=== PATIENT | female | born 1940 | race Caucasian/White ===

== ENCOUNTER 2022-10-25 17:32 | Outpatient (REF) | payer MEDICARE, OTHER, SELFPAY ==
[2022-10-25 14:39] LABS: ALT 13 U/L (14-59); AST 15 U/L (15-37); Albumin 3.8 g/dL (3.4-5.0); Alkaline Phosphatase 76 U/L (46-116); Anion Gap 5.9 mmol/L (3-11); BUN 20 mg/dL (7-18); Bilirubin, Total 0.7 mg/dL (0.2-1.0); CO2 32.1 mmol/L (21.0-32.0); CREATININE 0.9 mg/dL (0.55-1.02); Calcium 9.3 mg/dL (8.5-10.1); Calculated LDL 148 mg/dL (<100); Chloride 105 mmol/L (98-107); Cholesterol 241 mg/dL (<200); Estimated GFR 64.23 (mL/min/1.73m2); Glucose 91 mg/dL (74-106); HDL Cholesterol 77 mg/dL (40-60); Potassium 4.3 mmol/L (3.5-5.1); Sodium 143 mmol/L (136-145); Total Protein 7.5 g/dL (6.4-8.2); Triglyceride 84 mg/dL (<150)
== END 2022-10-25 17:33 | disposition home or self-care (01) ==
LOC: NCHCN 17:32
PROVIDERS: Visit Provider Family Medicine
DX: I10 Essential (primary) hypertension (principal)
CPT/HCPCS: 80053; 80061

== ENCOUNTER 2023-05-02 10:04 | Outpatient (REF) | payer MEDICARE, OTHER, SELFPAY ==
[2023-05-02 15:10] LABS: Anion Gap 8.3 mmol/L (3-11); BUN 22 mg/dL (7-18); CO2 28.7 mmol/L (21.0-32.0); Calcium 9.7 mg/dL (8.5-10.1); Chloride 104 mmol/L (98-107); Estimated GFR 56.25 (mL/min/1.73m2); Glucose 87 mg/dL (74-106); Potassium 4.3 mmol/L (3.5-5.1); Sodium 141 mmol/L (136-145)
== END 2023-05-02 10:05 | disposition home or self-care (01) ==
LOC: NCHCN 10:04
PROVIDERS: Visit Provider Family Medicine
DX: I10 Essential (primary) hypertension (principal)
CPT/HCPCS: 80048

== ENCOUNTER → 2023-08-01 00:30 | Outpatient (CLI) | payer MEDICARE, OTHER, SELFPAY ==
--- NOTE | 2023-08-01 | DI.US_ITS ---
APPROVED REPORT EXAM: Comprehensive 2D, Doppler, and color-flow Echocardiogram Patient Location: Out-Patient Turner Machine: Chandrika Dobson RDCS (AE) Indications: Murmur Other Information Study Quality: Adequate Conclusion Borderline concentric left ventricular hypertrophy. Ejection fraction is 50 to 55%. Septal motion s uggests an interventricular conduction delay Normal right ventricular size and function Both atria are normal in size Aortic valve is trileaflet and sclerotic with mild regurgitation Mild mitral regurgitation Right ventricular systolic pressure could not be estimated Ascending aorta measures 3.47 cm Wall motion Left Ventricle The left ventricle is normal size. Left ventricular systolic function is normal Borderline concentric left ventricular hypertrophy. Septal motion suggests IVCD There is no ventricular septal defect visu alized. LVEF is 50-55%. Right Ventricle The right ventricle is normal size. The right ventricular systolic function is normal. Atria The left atrium size is normal. The right atrium size is normal. The interatrial septum is intact wit h no evidence for an atrial septal defect. Aortic Valve The Aortic valve is sclerotic. Aortic valve is trileaflet. There is no aortic valvular stenosis. Mild aortic regurgitation. Mitral Valve The mitral valve is normal in structure. No evidence of mitral valve stenosis. Mild mitral regurgit ation. Tricuspid Valve The tricuspid valve is normal in structure. There is no tricuspid valve stenosis. Trace to mild tri cuspid regurgitation. Unable to assess PA pressure. Pulmonic Valve The pulmonary valve is normal in structure. There is no pulmonic valvular stenosis. Trace pulmonic re gurgitation. Great Vessels The aortic root is normal in size. The ascending aorta is mildly dilated. Aortic arch is normal in ca liber. IVC is normal in size and collapses >50% with inspiration. Pericardium There is no pericardial effusion. 2D Dimensions IVSD d PLAX 1.11 cm F: 0.6-1.0 Ao Root d 2.42 cm F: 2.7 - 3.3 LVPW d PLAX 1.10 cm F: 0.6 - 1.0 Ao Asc Diam d 3.47 cm F: 2.3 - 3.1 LVID d PLAX 4.54 cm F: 3.8 - 5.2 LVDs 3.65 cm F: 2.2 - 3.5 LV EF Teichholz 40.4 % FS 19.63 % LV EDV (Teich) 94.4 mL LV ESV (Teich) 56.2 mL M-Mode TAPSE 1.88 cm (M/F) >1.7 Auto EF LV EDV A4C 90.8 mL LV EDV A2C 118.7 mL LV EDV BP 105.4 mL LV ESV A4C 55.5 mL LV ESV A2C 67.3 mL LV ESV BP 61.8 mL LVEF(%) A4C 38.9 % LVEF(%) A2C 43.3 % LVEF(%) BP 41.4 % LV SV A4C 35.3 ml LV SV A2C 51.4 ml LV SV BP 43.7 ml LV CO A4C 2.1 L/min LV CO A2C 3.3 L/min LV CO BP 2.7 L/min HR A4C 60.51 BPM HR A2C 64.06 BPM LV EDV Index (BP) LV Strain Long Pk Overal Avg (s) 12.12 LA Volume LA Length A4C 5.0 cm LA Length A2C 4.9 cm LA Area A4C s 13.45 cm2 LA Area A2C s 17.37 cm2 LA Vol A4C A-L 30.50 mL LA Vol A2C A-L 52.70 mL LA Vol Biplane A-L 40.8 mL LA Vol/BSA A4C A-L LA Vol/BSA A2C A-L LA Vol/BSA BP A-L 23.2 mL/m2 LA Vol A4C MOD 28.3 mL LA Vol A2C MOD 50.2 mL LA Vol BP MOD 38.2 mL RA Volume RA Area A4C 10.0 cm2 RA ESV A4C (A-L) 19.6mL RA Vol/BSA A4C A-L RA Length A4C 4.3 cm RA ESV A4C (MOD) 18.8mL LV Diastology MV E' medial 0.035 (>0.07 m/s) MV E Vmax 0.75 (0.4-1.3 m/s) MV E/E' MED 21.13 (<14) MV A Vmax 1.10 (0.4-1.3 m/s) MV E' lateral 0.114 (>0.1 m/s) E/A Ratio 0.7 MV E/E' LAT 6.55 (<14) MV E' Average 0.075 m/s MV E/E'(average) 10.00 Aortic Valve AoV Vmax 1.79 m/s LVOT Vmax 1.03 m/s AoV Peak Grad 34.8 mmHg LVOT Peak Grad 4.2 mmHg AoV Area (Vmax) 1.48 cm2 LVOT VTI 0.233 m AoV VTI 0.383 m LVOT Mean Grad 2.4 mmHg AoV Mean Earl. 1.27 m/s LVOT SV 59.78 mL AoV Mean Grad 7.3 mmHg LVOT Diam s 1.80 cm AoV Area (VTI) 1.56 cm2 AV Regurg Peak Gr. 56.70 mmHg Velocity Ratio 0.58 AR Decel [place] 1.1m/sec2 AR DT 3292 msec AR PHT 955 msec AR Vmax 3.77 m/s Mitral Valve MV DT 288 (160-240 msec) MV Vmax TIPS 1.35 m/s MV Mean Grad 2.3 (<2mmHg) MV VTI 0.321 m Pulmonary Valve PV Vmax 0.97 (0.5-1.5 m/s) RVOT Vmax 0.81 m/s PV Peak Grad 3.7 mmHg RVOT Peak Gr. 2.6 mmHg PV Mean Earl 0.67 m/s RVOT VTI 0.181 m PV Mean Grad 2.1 mmHg RVOT Mean Gr. 1.4 mmHg Tricuspid Valve RA Pressure 3.00 mmHg TV S' 0.11 m/s
== END ==
PROVIDERS: Visit Provider Family Medicine
DX: R01.1 Cardiac murmur, unspecified (principal); I34.0 Nonrheumatic mitral (valve) insufficiency; I35.1 Nonrheumatic aortic (valve) insufficiency; I45.9 Conduction disorder, unspecified
CPT/HCPCS: 93306

== ENCOUNTER 2023-10-21 10:18 | Emergency (ER) | payer MEDICARE, OTHER, SELFPAY ==
[2023-10-21 10:21] VITALS: BP 154/85; PULSE 97; RESP 10; TEMP 36.8; O2SAT 97
--- NOTE | 2023-10-21 10:41 | ED.GENADUL_ITS ---
Discharge Plan Disposition Patient Disposition: Home Condition: Stable Discharge Details Clinical Impression: Cellulitis of arm, left Primary Care Provider: Cindy Royal ED Provider: Wero Ramos Home Meds and New Rx's Prescriptions: New prednisone 20 mg tablet 60 mg PO DAILY 4 Days Qty: 12 0RF amoxicillin-pot clavulanate 875-125 mg tablet 1 tab PO BID Qty: 14 0RF Continued amlodipine 2.5 mg tablet 5 mg PO DAILY Patient Comments: TAKE ONE TABLET BY MOUTH EVERY DAY losartan 25 mg tablet 25 mg PO DAILY Patient Comments: TAKE ONE TABLET BY MOUTH AT BEDTIME Discharge Instructions Additional Instructions: Take the medications as prescribed. If not better within a week follow-up with your primary care provider If you feel more ill, have spreading redness or high fevers return to the emergency department for reevaluation. HPI General Mode of arrival: ambulatory . Date/Time Provider Initiated Documentation: 10/21/23 10:29 . Limitations to Documentation: no limitations . Information obtained by: patient . History of Present Illness 83 year old F presents to the emergency department with the chief complaint of left wrist redness, described as moderate, Patient started experiencing this day(s) (3) and it has been constant. No relieving factors improve symptom(s), No exacerbating factors reported . Patient notes rash; denies fever/chills. Patient did receive the following treatments prior to arrival, none Related Data Home Medications ?Medication ?Instructions ?Recorded ?Confirmed amlodipine 2.5 mg tablet 5 mg PO DAILY 10/21/23 10/21/23 amoxicillin 875 mg-potassium 1 tab PO BID #14 tabs 10/21/23 clavulanate 125 mg tablet losartan 25 mg tablet 25 mg PO DAILY 10/21/23 10/21/23 prednisone 20 mg tablet 60 mg (3 x 20 mg) PO DAILY 4 days 10/21/23 #12 tabs Previous Rx's ?Medication ?Instructions ?Recorded amoxicillin 875 mg-potassium 1 tab PO BID #14 tabs 10/21/23 clavulanate 125 mg tablet prednisone 20 mg tablet 60 mg (3 x 20 mg) PO DAILY 4 days 10/21/23 #12 tabs Allergies Allergy/AdvReac Type Severity Reaction Status Date / Time No Known Allergies Allergy Unverified 10/21/23 10:25 General Stated Complaint: Cellulitis INNA: 3 Review of Systems All systems reviewed & are unremarkable except as noted in HPI and below Constitutional Constitutional: Denies chills, Denies fever(s) and Denies weakness Cardiovascular Cardiovascular: Denies chest pain and Denies dyspnea Respiratory Respiratory: Denies cough and Denies dyspnea Gastrointestinal Gastrointestinal: Denies abdominal pain, Denies nausea and Denies vomiting Integumentary/Breasts Skin/Breast: Reports rash Neurologic Neurologic: Denies weakness Exam Const General: no acute distress Orientation: alert HENTX Head: normal to inspection Ears: external ears normal General nose exam: external nose normal Mouth: moist mucous membranes Eyes General: appearance normal, both eyes and all related structures Neck Neck: normal visual inspection Resp Effort & Inspection: normal respiratory effort and able to speak in complete sentences Cardio Rate: regular rate Skin General skin exam: erythema Neuro General: patient alert and patient oriented x3 Psych Mental Status: mental status grossly normal Course Vital Signs Vital signs: Vital Signs Temperature 36.8 C 10/21/23 10:21 Pulse 97 H 10/21/23 10:21 Respiratory Rate 10 L 10/21/23 10:21 Blood Pressure 154/85 H 10/21/23 10:21 Pulse Oximetry 97 10/21/23 10:21 Temperature 36.8 C 10/21/23 10:21 Temperature Source Skin 10/21/23 10:21 Pulse 97 H 10/21/23 10:21 Respiratory Rate 10 L 10/21/23 10:21 Blood Pressure 154/85 H 10/21/23 10:21 Blood Pressure Position Sitting 10/21/23 10:21 Pulse Oximetry 97 10/21/23 10:21 Oxygen Delivery Method Room Air 10/21/23 10:21 Oxygen Flow Rate 0 10/21/23 10:21 Pain Level 9 10/21/23 10:21 Medical Decision Making 83-year-old female with a history of high blood pressure comes in with several days of left forearm and wrist redness and swelling. Denies any fevers or chills. She otherwise feels well. She denies any falls or trauma. She is alert and attentive on arrival and appears well speaking clearly. Her right distal forearm on the anterior surface is 5 x 6 cm of erythema extends over the wrist. She has full range of motion of the wrist with intact sensation and pulses. The wrist itself is not diffusely swollen. There is no crepitus or fluctuance. I suspect cellulitis versus inflammatory arthritis or tendinitis. I did recommend x-rays and labs and potentially an arthrocentesis to evaluate for septic joint but patient declines this and wants to try oral antibiotics and see if that improves. She understands the risks of worsening infection including potentially loss of limb and life and is willing accept these risks. She has full medical decision-making capacity, given the risk is not diffusely swollen and not having fevers I feel is reasonable to trial oral antibiotics. Will start her on Augmentin and also prednisone, will have her follow-up with her PCP and return precautions given. Differential Diagnosis Differential Diagnosis: Cellulitis, inflammatory arthritis, septic arthritis Quality:SDOH Health Related Social Needs: No Data to Display PFSH All Active Problems (Updated 10/21/23 @ 10:46 by Wero Ramos MD) Cellulitis of arm, left (Acute) Social History Smoking risk assessment performed?: No
[2023-10-21] MEDS: Amoxicillin 875/Clav. 125 TAB PO (10:47)
[2023-10-21] MEDS: predniSONE 20 MG TAB 60 MG PO (11:02)
[2023-10-21 11:03] VITALS: BP 154/85; PULSE 90; RESP 14; RESP 16; TEMP 36.8; O2SAT 97
== END 2023-10-21 11:03 | disposition home or self-care (01) ==
LOC: ER 10:51
PROVIDERS: Emergency Provider Emergency Medicine; PCP Family Medicine
DX: L03.114 Cellulitis of left upper limb (principal)
CPT/HCPCS: 99283; J7512

== ENCOUNTER 2024-07-30 09:57 | Outpatient (REF) | payer MEDICARE, OTHER, SELFPAY ==
[2024-07-30 15:05] LABS: Anion Gap 8.1 mmol/L (3-11); BUN 21 mg/dL (7-18); CO2 30.9 mmol/L (21.0-32.0); CREATININE 0.9 mg/dL (0.55-1.02); Calcium 9.5 mg/dL (8.5-10.1); Chloride 105 mmol/L (98-107); Estimated GFR 63.43 (mL/min/1.73m2); Glucose 87 mg/dL (74-106); Potassium 4.5 mmol/L (3.5-5.1); Sodium 144 mmol/L (136-145)
== END 2024-07-30 09:58 | disposition home or self-care (01) ==
LOC: NCHCN 09:57
PROVIDERS: PCP Family Medicine; Visit Provider Family Medicine
DX: I10 Essential (primary) hypertension (principal)
CPT/HCPCS: 80048

== ENCOUNTER 2024-11-24 10:32 | Outpatient (CLI) | payer MEDICARE, OTHER, SELFPAY ==
--- NOTE | 2024-11-24 10:09 | DI.RAD_ITS ---
Exam(s) XR KNEE LT 3V AP,LAT,KANDICE EXAM: XR KNEE LT 3V AP,LAT,KANDICE CLINICAL HISTORY: PAIN LEFT KNEE M25.562 CHRONIC PAIN G89.29 BILAT KNEE PAIN. TECHNIQUE: 2D digital imaging was performed. Three views. COMPARISON: CR XR KNEE RT 3V AP,LAT,KANDICE from 11/24/2024 FINDINGS: BONES: No acute fracture is present. No bony destructive lesion is seen. JOINTS: Severe narrowing of the medial femoral tibial joint space with periarticular spurring. This causes varus angulation. There is mild spurring at the articular aspect of the patella. There also degenerative changes the proximal tibial fibular joint. No joint effusion is seen. SOFT TISSUE: Normal. IMPRESSION: Severe degenerative changes of the medial femoral tibial joint. DATA REPOSITORY: RADIATION DOSE DELIVERED:
--- NOTE | 2024-11-24 10:09 | DI.RAD_ITS ---
Exam(s) XR KNEE RT 3V AP,LAT,KANDICE EXAM: XR KNEE RT 3V AP,LAT,KANDICE CLINICAL HISTORY: PAIN RT KNEE M25.561 CHRONIC PAIN G89.29 BILAT KNEE PAIN. TECHNIQUE: 2D digital imaging was performed. Three views. COMPARISON: No exams were available for comparison FINDINGS: BONES: No acute fracture is present. No bony destructive lesion is seen. Other spurring at the superior pole of the patella. JOINTS: There is moderate narrowing of medial femoral tibial joint space which shows moderate periarticular spurring. This causes mild varus angulation. The lateral femoral tibial joint space is maintained. No joint effusion is seen. SOFT TISSUE: Normal. IMPRESSION: Moderate degenerative changes of the medial femoral tibial joint.. DATA REPOSITORY: RADIATION DOSE DELIVERED:
== END 2024-11-24 10:52 ==
LOC: DI 10:32
PROVIDERS: PCP Family Medicine; Visit Provider Family Medicine
DX: M17.0 Bilateral primary osteoarthritis of knee (principal)
CPT/HCPCS: 73562

== ENCOUNTER 2024-12-27 07:42 | Inpatient (IN) | payer MEDICARE, OTHER, SELFPAY ==
[2024-12-27] VITALS (38 sets, daily range): BP systolic 125–188; BP diastolic 68–93; PULSE 63–129; RESP 16–26; TEMP 36.7–37.5; O2SAT 92–97
--- NOTE | 2024-12-27 07:45 | RT.EKG_ITS ---
APPROVED REPORT Exam: Resting ECG Reason for Exam: chest pain Patient Location: E HR:104 bpm ECG Measurements Heart Rate 104 AXIS MN 152 P 55 QRSd 129 QRS -19 QT 346 T 139 QTc 457 Conclusion Sinus tachycardia...rate> 99 Multiple ventricular premature complexes...V complexes w/ short R-R intervls Probable left atrial enlargement...P >50mS, <-0.10mV V1 Left bundle branch block...QRSd>120, broad/notched R ST elevation secondary to IVCD...Multiple VCG criteria
--- NOTE | 2024-12-27 07:50 | W.ED.GENAD ---
Discharge Plan Disposition Patient Disposition: Admit to [facility] Condition: Stable Discharge Details Clinical Impression: Pulmonary embolism, Shortness of breath Primary Care Provider: Cindy Royal ED Provider: Wero Ramos Home Meds and New Rx's Prescriptions: No Action amlodipine 2.5 mg tablet 5 mg PO DAILY Patient Comments: TAKE ONE TABLET BY MOUTH EVERY DAY losartan 25 mg tablet 25 mg PO DAILY Patient Comments: TAKE ONE TABLET BY MOUTH AT BEDTIME HPI General Date/Time Provider Initiated Documentation: 12/27/24 07:46. Limitations to Documentation: no limitations. Information obtained by: patient. History of Present Illness 84 year old F presents to the emergency department with the chief complaint of cough, chest pain, described as moderate, Quality is described as aching and sharp, and is localized to the chest and back. Patient started experiencing this day(s) (2) and it has been constant. No relieving factors improve symptom(s), Other factors that worsen symptoms (deep breaths) . Patient notes no other symptoms.. Patient did receive the following treatments prior to arrival, none Related Data Home Medications ?Medication ?Instructions ?Recorded ?Confirmed amlodipine 2.5 mg tablet 5 mg PO DAILY 10/21/23 12/27/24 losartan 25 mg tablet 25 mg PO DAILY 10/21/23 12/27/24 Allergies Allergy/AdvReac Type Severity Reaction Status Date / Time No Known Allergies Allergy Unverified 12/27/24 07:49 General Stated Complaint: RespSymp INNA: 3 Review of Systems All systems reviewed & are unremarkable except as noted in HPI and below Constitutional Constitutional: Denies chills, Denies fever(s) and Denies weakness Cardiovascular Cardiovascular: Reports chest pain and Reports dyspnea Respiratory Respiratory: Reports cough and Reports dyspnea Gastrointestinal Gastrointestinal: Denies abdominal pain, Denies nausea and Denies vomiting Neurologic Neurologic: Denies weakness Exam Const General: no acute distress Orientation: alert HENDC Head: normal to inspection Ears: external ears normal General nose exam: external nose normal Mouth: moist mucous membranes Eyes General: appearance normal, both eyes and all related structures Neck Neck: normal visual inspection Resp Effort & Inspection: normal respiratory effort and able to speak in complete sentences Auscultation: rhonchi Cardio Jugular venous pressure: no JVD Rate: regular rate GI Palpation: soft and nontender Back/Spine/Pelvis Back: no CVA tenderness Skin General skin exam: no rashes or lesions noted Neuro General: patient alert and patient oriented x3 Extrem General: normal to inspection Psych Mental Status: mental status grossly normal Course Vital Signs Vital signs: Vital Signs Temperature 37.5 C 12/27/24 07:47 Pulse 114 H 12/27/24 07:47 Respiratory Rate 22 12/27/24 07:47 Blood Pressure 188/88 H 12/27/24 07:47 Pulse Oximetry 97 12/27/24 07:47 Temperature 37.5 C 12/27/24 07:47 Temperature Source Oral 12/27/24 07:47 Pulse 114 H 12/27/24 07:47 Respiratory Rate 22 12/27/24 07:47 Blood Pressure 188/88 H 12/27/24 07:47 Blood Pressure Position Sitting 12/27/24 07:47 Pulse Oximetry 97 12/27/24 07:47 Oxygen Delivery Method Room Air 12/27/24 07:47 Oxygen Flow Rate 0 12/27/24 07:47 Pain Level 0 12/27/24 07:47 Medical Decision Making 84-year-old female with a history of hypertension comes in with 2 days of cough that is intermittently productive and also pleuritic right-sided chest pain. Denies any high fevers. She is well-appearing speaking full sentences with intermittent cough during exam. She has clear lung sounds on the left but on the right does have apical wheezing and rhonchi at the base. No JVD or leg swelling. I suspect respiratory infection but given the pleuritic nature of her pain and a heart rate of 114 I will proceed with checking a CBC CMP troponins and a CTA of the chest to evaluate for possible PE. Will treat her symptoms with methylprednisolone and a DuoNeb and reassess Labs show white count of 18 and mild elevation of troponin to 62. She does feel better after DuoNeb. CTA on my read shows an infiltrate awaiting virtual radiology read. Will order ceftriaxone and azithromycin while awaiting CTA shows right sided PE. Her Pesi score is 103 which is intermediate risk, will order Eliquis and discussed with hospitalist about admission Differential Diagnosis Differential Diagnosis: Pneumonia, PE, URI Medical Records Medical records reviewed: Yes I reviewed the patient's medical records. Lab Data Lab results reviewed: Yes I reviewed the patient's lab results. ECG Data Attestation: I personally reviewed and interpreted this ECG (s) as follows: Prior ECG tracings: not available for review Interpretation: sinus tachycardia rate of 104 pr 152 no stemi lbbb PFSH All Active Problems (Updated 12/27/24 @ 10:58 by Wero Ramos MD) Shortness of breath (Acute) Pulmonary embolism (Chronic) Social History Smoking/Tobacco Use Status: Unknown Smoking risk assessment performed?: Yes Drug use: Never Substance use type: does not use Housing: house Do you feel safe at home: Yes Do you feel safe in your relationship?: Yes
--- NOTE | 2024-12-27 08:01 | DI.CT_ITS ---
Exam(s) CT CHEST PE CTA EXAM: CT CHEST PE CTA CLINICAL HISTORY: right sided pleuritic chest pain. TECHNIQUE: Imaging Protocol: CT angiography of the chest was performed using pulmonary embolus protocol. Multi planar reconstructions were performed. CONTRAST MATERIAL: Intravenous: Omnipaque 350 Contrast volume: 100 cc COMPARISON: No exams were available for comparison FINDINGS: CHEST: PULMONARY ARTERIES: There are abnormal intraluminal filling defects with in the pulmonary arteries in the right lower lobe posterior basal segment consistent with acute pulmonary emboli. No emboli seen in the right upper and right middle lobes. There intraluminal filling defect evident in left upper lobe pulmonary arteries. No filling defects in left lower lobe pulmonary arteries.There is infiltrate in the right lung base posterior basal segment and lateral basal segment. And a small right pleural effusion. LUNGS: As above. No findings in trachea and mainstem bronchi. Healed left- sided rib fractures. MEDIASTINUM: There is no hilar nor mediastinal adenopathy. CARDIAC: Mild cardiomegaly. No pericardial effusion. Ventricular ratio is 1/1.Caliber of the thoracic aorta is within normal limits. No evidence of dissection. PARTIALLY VISUALIZED UPPERMOST ABDOMEN: No obvious findings OSSEOUS: Healed left rib fractures. No acute fractures. No osseous lesions.. IMPRESSION: 1. This study is positive for the presence of acute pulmonary emboli in right lower lobe vessels. There is also some infiltrate in the right lower lobe posterior basal and lateral basal segments. Suspect pulmonary infarction, infectious infiltrate, or a combination of both.There is also small unilateral right pleural effusion. 2. There is also a subtle suggestion of pulmonary embolus in the left upper lobe. No evidence of infiltrate nor infarction in the left upper lobe and there is no left pleural effusion. 3. Ventricular ratio is 1:1. There is no reflux of IV contrast into the intrahepatic IVC. Preliminary virtual Radiology report was reviewed. RADIATION DOSE DELIVERED: 81.89mGy.cm Total DLP DATA REPOSITORY: All CT scans at this facility are submitted to the National Radiology Data Registry (NRDR) Dose Index Registry (DIR) with the [employer] (ACR). RADIATION OPTIMIZATION: All CT scans at this facility use at least one of these dose optimization techniques: automated exposure control; mA and/or kV adjustment per patient size (includes targeted exams where dose is matched to clinical indication); or iterative reconstruction.
[2024-12-27 08:33] LABS: Abs Immature Grans 0.07 10^3/uL (0.0-0.06); HCT 37.1 % (36.0-46.0); HGB 12.1 g/dL (11.2-15.7); Immature Grans % 0.4 %; MCH 28.1 pg (27.0-33.0); MCHC 32.6 % (32.0-36.0); MCV 86 fL (80-95); MPV 10.5 fL (8.0-11.0); Platelet Count 214 10^3/uL (130-400); RBC 4.31 10^6/uL (3.93-5.22); RDW 13.7 % (11.7-14.6); RDW-SD 43.0 fL; WBC 18.49 10^3/uL (4.4-10.8)
[2024-12-27] MEDS: methylPREDNISolone SUCC 125 MG VIAL IVP (08:47)
[2024-12-27] MEDS: Normal Saline 250 ML 500 ML IV (08:47)
[2024-12-27] MEDS: Normal Saline Flush 10 ML SYR IVP ×3 (08:47→20:01)
[2024-12-27 08:48] LABS: INR 1.0 (0.9-1.1); PTT Activated 22.3 sec (20.6-30.2); Prothrombin Time 10.3 sec (9.1-11.1)
[2024-12-27 08:55] LABS: ALT 20 U/L (14-59); AST 13 U/L (15-37); Albumin 3.4 g/dL (3.4-5.0); Alkaline Phosphatase 67 U/L (46-116); Anion Gap 7.8 mmol/L (3-11); BUN 18 mg/dL (7-18); Bilirubin, Total 1.0 mg/dL (0.2-1.0); CO2 29.2 mmol/L (21.0-32.0); Calcium 9.0 mg/dL (8.5-10.1); Chloride 101 mmol/L (98-107); Estimated GFR 55.90 (mL/min/1.73m2); Glucose 141 mg/dL (74-106); Magnesium 2.0 mg/dL (1.8-2.4); Potassium 4.0 mmol/L (3.5-5.1); Sodium 138 mmol/L (136-145); Total Protein 7.6 g/dL (6.4-8.2)
[2024-12-27 08:55] LABS: COVID-19 PCR Negative (Negative); RSV PCR Negative (Negative)
[2024-12-27 08:58] LABS: Troponin I 62 ng/L (<or=51)
[2024-12-27] MEDS: Normal Saline - Diluent 50 ML VIAL IJ (09:14)
[2024-12-27] MEDS: Omnipaque 350 MG/ML 100 ML BTL IJ (09:14)
[2024-12-27 10:07] LABS: Troponin I 57 ng/L (<or=51)
--- NOTE | 2024-12-27 10:32 | DI.VRAD_ITS ---
Addendum created by Kamran Valencia MD on 12/27/2024 10:33:53 AM EDT: THIS REPORT CONTAINS FINDINGS THAT MAY BE CRITICAL TO PATIENT CARE. The findings were verbally communicated via telephone conference with Wero Ramos at 10:33 AM EDT on 12/27/2024. The findings were acknowledged and understood. Initial report created on 12/27/2024 10:32:08 AM EDT: PROCEDURE INFORMATION: Exam: CTA Chest With Contrast Exam date and time: 12/27/2024 9:18 AM Age: 84 years old Clinical indication: Other: Right sided pleuritic chest pain TECHNIQUE: Imaging protocol: Computed tomographic angiography of the chest with contrast. Exam focused on the arteries. 3D rendering (Not supervised by radiologist): MIP and/or 3D reconstructed images were created by the technologist. Contrast material: OMNIPAQUE 350; Contrast volume: 70 ml; Contrast route: INTRAVENOUS (IV); COMPARISON: No relevant prior studies available. FINDINGS: Pulmonary arteries: Right lower lobe segmental and subsegmental pulmonary emboli. There are no central or main pulmonary artery emboli. Aorta: Unremarkable. No aortic aneurysm. No aortic dissection. Lungs: Right upper lobe ground-glass opacity measures 7 mm. Adjacent 5 mm ground-glass opacity. Right lower lobe atelectasis. Low lung volumes. Pleural spaces: Small right pleural effusion. Heart: Cardiomegaly. The cardiac ratio is 1.0. Lymph nodes: Unremarkable. No enlarged lymph nodes. Bones/joints: Unremarkable. No acute fracture. Soft tissues: Unremarkable. IMPRESSION: 1. Right lower lobe segmental and subsegmental pulmonary emboli. 2. Borderline elevated heart ratio. 3. Right lower lobe atelectasis with small right pleural effusion. Dictated and Authenticated by: Kamran Valencia MD. Orderin Richard Conteh MD
[2024-12-27] MEDS: cefTRIAXone 2 GM/50 ML BAG IVPB (10:39)
[2024-12-27] MEDS: AZITHROMYCIN 500 MG in Normal Saline 250 ML 250 MG IVPB (11:17)
[2024-12-27] MEDS: Apixaban 5 MG TAB 10 MG PO ×2 (11:18→20:00)
--- NOTE | 2024-12-27 11:52 | HPE_ITS ---
Date of service: 12/27/24 Time of Service: 11:52 Assessment and Plan Assessment and plan (1) Shortness of breath: Status: Acute Assessment and plan: RT evjuan ramon Nebs IS Acapella O2 PRN (2) Pulmonary embolism: Status: Chronic Assessment and plan: Apixaban started in ED; continue 10 mg BID Acute, confirmed by imaging. Monitor for signs of bleeding and hemodynamic instability. Supplemental O2 to maintain SpO2 > 92%. Telemetry monitoring. Consider echocardiogram if concern for right heart strain. Follow-up with hematology or PCP for long-term anticoagulation plan. (3) Community acquired pneumonia: Status: Acute Assessment and plan: New onset acute shortness of breath WBC 18 Continue empiric IV antibiotics - ceftriaxone and azithromycin (tailor per culture/sensitivity results). Supplemental O2 as needed. Incentive spirometry, pulmonary hygiene. Monitor WBC count, temperature curve, and clinical status. BC pending Repeat chest imaging if worsening or poor clinical response. History of Present Illness History of Present Illness Chief Complaint: Cough; chest pain Narrative: An 84-year-old female with a history of hypertension presents to the emergency department with a 2-day history of cough and moderate, sharp, pleuritic right- sided chest pain, which is constant and worsens with deep breaths. She denies chills, fever, or weakness, and has not experienced any other symptoms such as nausea or vomiting. Initial labs indicate a white blood cell count of 18 and a mild troponin elevation to 62. A chest CT angiogram reveals a right-sided pulmonary embolism. The patient's PESI score of 103 suggests an intermediate risk for PE. WBC: 18K (elevated) Troponin: 62 (mildly elevated) ECG: Sinus tachycardia (HR 104), CO 152, no STEMI, LBBB noted CTA chest: Right-sided pulmonary embolism; infiltrate also noted PESI score: 103 (intermediate risk) In the ED, the patient was started on Azithromycin and Ceftriaxone for possible pneumonia; blood cultures pending, and apixaban. Patient has no oxygen requirement. Patient is admitted to the medical floor for further testing and treatment. Patient agrees to plan of care. Patient is a full code. Review of Systems Narrative: Constitutional: Denies chills, fever, and weakness. Cardiovascular: Reports chest pain and dyspnea. Respiratory: Reports cough and dyspnea. Gastrointestinal: Denies abdominal pain, nausea, and vomiting. Neurologic: Denies weakness. PFSH All Active Problems (Updated 12/27/24 @ 12:00 by Winsome Camargo NP) Community acquired pneumonia (Acute) Shortness of breath (Acute) Pulmonary embolism (Chronic) Social History Smoking/Tobacco Use Status: Unknown Smoking risk assessment performed?: Yes Drug use: Never Substance use type: does not use Housing: house Do you feel safe at home: Yes Do you feel safe in your relationship?: Yes Meds Allergies and Home Medications Allergies Allergy/AdvReac Type Severity Reaction Status Date / Time No Known Allergies Allergy Unverified 12/27/24 07:49 Home Medications ?Medication ?Instructions ?Recorded ?Confirmed ?Type amlodipine 5 mg tablet 5 mg PO DAILY 12/27/2412/27 History olmesartan 40 mg tablet 40 mg PO DAILY 12/27/2408/16 History Exam Narrative Exam Narrative: General: Alert, no acute distress HEENT: Normal exam, moist mucous membranes Neck: No JVD Respiratory: Normal effort; intermittent cough; right-sided apical wheeze and rhonchi at base; left lung clear Cardiac: Regular rate; no murmurs noted GI: Abdomen soft, non-tender Neuro: Alert and oriented x3 Skin/Extremities: No rashes, no edema Psych: Mental status grossly normal Results Labs 12/27/24 08:23 12/27/24 08:23 Labs: Laboratory Results - last 24 hr 12/27/24 12/27/24 12/27/24 08:00 08:23 09:31 WBC 18.49 H RBC 4.31 Hgb 12.1 Hct 37.1 MCV 86 MCH 28.1 MCHC 32.6 RDW 13.7 Plt Count 214 MPV 10.5 Immature Gran % 0.4 Neutrophils % 85.6 Lymphocytes % 6.6 Monocytes % 7.0 Eosinophils % 0.1 Basophils % 0.3 Nucleated RBC % 0.0 Absolute Neutrophils 15.83 H Absolute Lymphocytes 1.22 Absolute Monocytes 1.29 H Absolute Eosinophils 0.02 Absolute Basophils 0.06 PT 10.3 INR 1.0 APTT 22.3 Sodium 138 Potassium 4.0 Chloride 101 Carbon Dioxide 29.2 Anion Gap 7.8 BUN 18 Creatinine 1.0 Est GFR (CKD-EPI 2020) 55.90 Glucose 141 H Calcium 9.0 Magnesium 2.0 Total Bilirubin 1.0 AST 13 L ALT 20 Alkaline Phosphatase 67 Troponin I 62 H* 57 H* Total Protein 7.6 Albumin 3.4 COVID-19 Source Nasopharynx SARS-CoV-2 (PCR) Negative Influenza Type A (PCR) Negative Influenza Type B (PCR) Negative RSV (PCR) Negative 12/27/24 10:54 WBC RBC Hgb Hct MCV MCH MCHC RDW Plt Count MPV Immature Gran % Neutrophils % Lymphocytes % Monocytes % Eosinophils % Basophils % Nucleated RBC % Absolute Neutrophils Absolute Lymphocytes Absolute Monocytes Absolute Eosinophils Absolute Basophils PT INR APTT Sodium Potassium Chloride Carbon Dioxide Anion Gap BUN Creatinine Est GFR (CKD-EPI 2020) Glucose Calcium Magnesium Total Bilirubin AST ALT Alkaline Phosphatase Troponin I Cancelled Total Protein Albumin COVID-19 Source SARS-CoV-2 (PCR) Influenza Type A (PCR) Influenza Type B (PCR) RSV (PCR) Last Vital Signs Temp 37.5 C 12/27/24 07:47 Pulse 100 H 12/27/24 11:40 Resp 17 12/27/24 11:40 BP 165/90 H 12/27/24 11:15 Pulse Ox 96 12/27/24 11:40 Time Spent Time spent with Patient: 40-54 minutes Time was spent: preparing to see the patient(eg.review tests), obtaining and/or reviewing separately otained hiistory, ordering medications,tests, procedures, referring, communicating with other health hearing healthcare practitioner, indepentently interpreting results, counseling the patient and care coordination
--- NOTE | 2024-12-27 13:15 | PHA.REVIEW2 ---
Pharmacy Admission Review Admission Clinical Review Admission Pharmacy Review: Community acquired pneumonia (Acute) Shortness of breath (Acute) No Known Allergies Allergy (Unverified 12/27/24 07:49) Resuscitation Status Full Code Height 5 ft 4 in Weight 72.121 kg Pharmacy Admission Review Renal Dosing Renal Dosing: BUN 18 mg/dL (7-18) 12/27/24 08:23 Creatinine 1.0 mg/dL (0.55-1.02) 12/27/24 08:23 Medications needing adjustments: Reviewed (CrCl 41.5 mL/min) List of meds needing interventions: Current medications are okay Anticoagulation Anticoagulation: Hgb 12.1 g/dL (11.2-15.7) 12/27/24 08:23 Hct 37.1 % (36.0-46.0) 12/27/24 08:23 Plt Count 214 10^3/uL (130-400) 12/27/24 08:23 INR 1.0 (0.9-1.1) 12/27/24 08:23 Creatinine 1.0 mg/dL (0.55-1.02) 12/27/24 08:23 DVT Prophylaxis: Reviewed Medications: Apixaban (5mg BID) Relevant Labs Relevant Labs: Sodium 138 mmol/L (136-145) 12/27/24 08:23 Potassium 4.0 mmol/L (3.5-5.1) 12/27/24 08:23 Chloride 101 mmol/L (98-107) 12/27/24 08:23 Magnesium 2.0 mg/dL (1.8-2.4) 12/27/24 08:23 Electrolytes, C-Reactive P, ESR: Reviewed Cardiac Review Cardiac Review: Troponin I 57 H* ng/L (<or=51) 12/27/24 09:31 Blood Pressure 157/87 1202 Blood Pressure 165/90 1115 Blood Pressure 159/88 1101 Blood Pressure 155/87 1046 Blood Pressure 157/79 1032 Blood Pressure 170/85 1030 Blood Pressure 158/85 1015 Blood Pressure 162/89 1001 Blood Pressure 162/76 0946 Blood Pressure 164/93 0934 Blood Pressure 160/76 0900 Blood Pressure 157/76 0845 Blood Pressure 146/68 0813 Blood Pressure 188/88 0747 BP, HR, EF%: Reviewed (HR WNL) List meds needing interventions: Has orders for amlodipine 5mg daily and patients own Olmesartan 40mg daily QTc Review QTc: Reviewed (457 from 12/27/24) IV to PO Switch IV Medications: Reviewed (ceftriaxone) Home Meds Home Med List reviewed: Intervened Relevent Home Meds Not ordered & why?: Changed order for olmesartan to patients own (non-formulary). Asked nurse to see if this could be brought in for the patient. Waiting to hear back. Current Meds Current Medication Order Review: Reviewed Pharmacy Antibiotic Review Relevant Labs: WBC 18.49 10^3/uL (4.4-10.8) H 12/27/24 08:23 Temperature 36.8 C Temperature 37.5 C Pharmacy Antibiotic Activity: C/S review and Reviewed, no change Comments: Patient is on ceftriaxone and azithromycin, day 1, for CAP. Blood cultures pending.
--- NOTE | 2024-12-27 15:09 | W.PC.ACHO ---
Registration Status: ADM IN Primary Language: Preferred Language: Unable to Obtain ED Information & Data Chief Complaint RespSymp 12/27/24 08:27 Chief Complaint RespSymp 12/27/24 08:07 Triage Note right sided pain in back and 12/27/24 07:47 chest w/any deep breathes. Feels like she cant get a deep breath in- cough, headache. Has not slept all night because she can not lay down flat Most Recent Vital Signs Temperature 36.7 C 12/27/24 14:23 Temperature Source Temporal Artery Scan 12/27/24 14:23 Pulse 63 12/27/24 14:23 Pulse Rhythm Regular 12/27/24 12:02 Pulse 102 H 12/27/24 11:40 Respiratory Rate 18 12/27/24 14:23 Respiratory Effort Normal, Non-Labored 12/27/24 12:02 Respiratory Depth Normal 12/27/24 12:02 Respiratory Pattern Normal 12/27/24 12:02 Blood Pressure 135/78 12/27/24 14:23 Blood Pressure Mean 97 12/27/24 14:23 Blood Pressure Position Sitting 12/27/24 07:47 Pulse Oximetry 97 12/27/24 14:23 Oxygen Delivery Method Room Air 12/27/24 14:23 Oxygen Flow Rate 0 12/27/24 14:23 Pain Level 0 12/27/24 07:47 Allergies No Known Allergies Allergy (Unverified 12/27/24 07:49) Precautions Isolation Droplet precaution 12/27/24 08:27 Active Medications Generic Name Dose Route Start Last Admin Trade Name Freq PRN Reason Stop Dose Admin Sodium Chloride 0 ml 12/27/24 08:30 12/27/24 08:47 Normal Saline Flush 10 Ml Syr IVP 10 ml BID GALI Administration IV IV Catheter Type [Right Wrist] Saline Lock IV Catheter Type [Left Saline Lock Antecubital] IV Catheter Gauge [Right Wrist 20 ] IV Catheter Gauge [Left 18 Antecubital] Diet Orders Category Date Time Status Regular/Normal [DIET] Nutrition 12/27/24 Lunch Active Diagnostics 12/27/24 12/27/24 12/27/24 Range/Units 10:54 09:31 08:23 WBC 18.49 H (4.4-10.8) 10^3/uL RBC 4.31 (3.93-5.22) 10^6/uL Hgb 12.1 (11.2-15.7) g/dL Hct 37.1 (36.0-46.0) % MCV 86 (80-95) fL MCH 28.1 (27.0-33.0) pg MCHC 32.6 (32.0-36.0) % RDW 13.7 (11.7-14.6) % Plt Count 214 (130-400) 10^3/uL MPV 10.5 (8.0-11.0) fL Immature Gran % 0.4 % Neutrophils % 85.6 % Lymphocytes % 6.6 % Monocytes % 7.0 % Eosinophils % 0.1 % Basophils % 0.3 % Nucleated RBC % 0.0 (0.0-0.3) % Absolute Neutrophils 15.83 H (1.2-6.7) 10^3/uL Absolute Lymphocytes 1.22 (1.2-3.4) 10^3/uL Absolute Monocytes 1.29 H (0.1-0.8) 10^3/uL Absolute Eosinophils 0.02 (0.0-0.7) 10^3/uL Absolute Basophils 0.06 (0.0-0.2) 10^3/uL PT 10.3 (9.1-11.1) sec INR 1.0 (0.9-1.1) APTT 22.3 (20.6-30.2) sec Sodium 138 (136-145) mmol/L Potassium 4.0 (3.5-5.1) mmol/L Chloride 101 (98-107) mmol/L Carbon Dioxide 29.2 (21.0-32.0) mmol/L Anion Gap 7.8 (3-11) mmol/L BUN 18 (7-18) mg/dL Creatinine 1.0 (0.55-1.02) mg/dL Est GFR (CKD-EPI 2020) 55.90 (mL/min/1.73m2) Glucose 141 H (74-106) mg/dL Calcium 9.0 (8.5-10.1) mg/dL Magnesium 2.0 (1.8-2.4) mg/dL Total Bilirubin 1.0 (0.2-1.0) mg/dL AST 13 L (15-37) U/L ALT 20 (14-59) U/L Alkaline Phosphatase 67 (46-116) U/L Troponin I Cancelled 57 H* 62 H* (<or=51) ng/L Total Protein 7.6 (6.4-8.2) g/dL Albumin 3.4 (3.4-5.0) g/dL COVID-19 Source SARS-CoV-2 (PCR) (Negative) Influenza Type A (PCR) (Negative) Influenza Type B (PCR) (Negative) RSV (PCR) (Negative) 12/27/24 Range/Units 08:00 WBC (4.4-10.8) 10^3/uL RBC (3.93-5.22) 10^6/uL Hgb (11.2-15.7) g/dL Hct (36.0-46.0) % MCV (80-95) fL MCH (27.0-33.0) pg MCHC (32.0-36.0) % RDW (11.7-14.6) % Plt Count (130-400) 10^3/uL MPV (8.0-11.0) fL Immature Gran % % Neutrophils % % Lymphocytes % % Monocytes % % Eosinophils % % Basophils % % Nucleated RBC % (0.0-0.3) % Absolute Neutrophils (1.2-6.7) 10^3/uL Absolute Lymphocytes (1.2-3.4) 10^3/uL Absolute Monocytes (0.1-0.8) 10^3/uL Absolute Eosinophils (0.0-0.7) 10^3/uL Absolute Basophils (0.0-0.2) 10^3/uL PT (9.1-11.1) sec INR (0.9-1.1) APTT (20.6-30.2) sec Sodium (136-145) mmol/L Potassium (3.5-5.1) mmol/L Chloride (98-107) mmol/L Carbon Dioxide (21.0-32.0) mmol/L Anion Gap (3-11) mmol/L BUN (7-18) mg/dL Creatinine (0.55-1.02) mg/dL Est GFR (CKD-EPI 2020) (mL/min/1.73m2) Glucose (74-106) mg/dL Calcium (8.5-10.1) mg/dL Magnesium (1.8-2.4) mg/dL Total Bilirubin (0.2-1.0) mg/dL AST (15-37) U/L ALT (14-59) U/L Alkaline Phosphatase (46-116) U/L Troponin I (<or=51) ng/L Total Protein (6.4-8.2) g/dL Albumin (3.4-5.0) g/dL COVID-19 Source Nasopharynx SARS-CoV-2 (PCR) Negative (Negative) Influenza Type A (PCR) Negative (Negative) Influenza Type B (PCR) Negative (Negative) RSV (PCR) Negative (Negative) 12/27/24 10:33 Blood Culture - Pending Blood 12/27/24 10:24 Blood Culture - Pending Blood Intake and Output - 24 Hour Total 12/27/24 07:42 thru 12/27/24 12:02 Intake Total 320 Balance 320 Weight 72.121 kg Intake: IV 320 Other: Urine Appearance Clear Cloudy Falls Risk Assessment History of Falls No History 12/27/24 12:02 Contributing Factors No Factors 12/27/24 12:02 Ambulatory Aids Independent 12/27/24 12:02 Tubes/Lines W/no contributing factors 12/27/24 12:02 Gait Evaluation W/no contributing factors 12/27/24 12:02 Cognition No cognitive impairment 12/27/24 12:02 Fall Total Score 20 12/27/24 12:02 Level of Risk Standard/Low Risk 12/27/24 12:02 Problems Community acquired pneumonia (Acute) Shortness of breath (Acute) Pulmonary embolism (Chronic) v v v v v v v v v Sending and/or Receiving Nurses: Please use comment section below to note any information pertinent to the patient hand-off not included above. Information / Comments: Walky-talky, elliquis given, up to floor with abx running, continent, tele. Report received from: Nenita Womack ED RN. First call for report @ 11:34, ER called back at 11:45.
--- NOTE | 2024-12-27 15:30 | RT.EKG_ITS ---
APPROVED REPORT Exam: Resting ECG Reason for Exam: Lead two, changes Patient Location: I HR:109 bpm ECG Measurements Heart Rate 109 AXIS MT 142 P 58 QRSd 124 QRS -18 QT 345 T 131 QTc 465 Conclusion Sinus tachycardia...rate> 99 Probable left atrial enlargement...P >50mS, <-0.10mV V1 Left bundle branch block...QRSd>120, broad/notched R
[2024-12-27 16:29] LABS: Troponin I 64 ng/L (<or=51)
--- NOTE | 2024-12-27 19:00 | RT.EKG_ITS ---
APPROVED REPORT Exam: Resting ECG Reason for Exam: Serial EKG's w increased troponin - no chest pain Patient Location: I HR:97 bpm ECG Measurements Heart Rate 97 AXIS AR 170 P 68 QRSd 119 QRS -3 QT 351 T 163 QTc 446 Conclusion Sinus rhythm...normal P axis, V-rate 50- 99 LBBB
[2024-12-27 19:46] LABS: Troponin I 59 ng/L (<or=51)
[2024-12-28 02:59] VITALS: BP 137/75; PULSE 81; RESP 16; TEMP 36.6; O2SAT 94
[2024-12-28 05:59] LABS: HCT 35.2 % (36.0-46.0); HGB 11.6 g/dL (11.2-15.7); MCH 28.4 pg (27.0-33.0); MCHC 33.0 % (32.0-36.0); MCV 86 fL (80-95); MPV 11.1 fL (8.0-11.0); Platelet Count 223 10^3/uL (130-400); RBC 4.09 10^6/uL (3.93-5.22); RDW 13.9 % (11.7-14.6); RDW-SD 43.4 fL; WBC 24.45 10^3/uL (4.4-10.8)
[2024-12-28 06:27] LABS: Anion Gap 10.5 mmol/L (3-11); BUN 26 mg/dL (7-18); CO2 25.5 mmol/L (21.0-32.0); Calcium 8.9 mg/dL (8.5-10.1); Chloride 103 mmol/L (98-107); Estimated GFR 63.43 (mL/min/1.73m2); Glucose 150 mg/dL (74-106); Magnesium 2.1 mg/dL (1.8-2.4); Potassium 4.0 mmol/L (3.5-5.1); Sodium 139 mmol/L (136-145)
[2024-12-28 07:59] VITALS: BP 136/66; PULSE 81; RESP 17; TEMP 36.7; O2SAT 95
--- NOTE | 2024-12-28 08:00 | DI.US_ITS ---
Exam(s) US EXTREMITY VENOUS BI EXAM: US EXTREMITY VENOUS BI CLINICAL HISTORY: PE. TECHNIQUE: Bilateral lower extremity venous ultrasound performed using grayscale, color-flow, and spectral Doppler analysis. COMPARISON: No exams were available for comparison FINDINGS: The right common femoral, femoral and popliteal veins demonstrate normal compressibility, augmentation, and color Doppler. The posterior tibial veins are patent. The saphenofemoral junction is unremarkable. There is no evidence of a Hastings's cyst. The soft tissues are unremarkable. The left common femoral, femoral and popliteal veins demonstrate normal compressibility, augmentation, and color Doppler. The posterior tibial veins are patent. The saphenofemoral junction is unremarkable. There is a 5.2 x 2.9 x 3.3 cm Hastings cyst. The soft tissues are unremarkable. IMPRESSION: 1. No evidence of a right lower extremity DVT. 2. No evidence of a left lower extremity DVT. DATA REPOSITORY:
[2024-12-28] MEDS: Azithromycin 250 MG TAB 500 MG PO (09:06)
[2024-12-28] MEDS: amLODIPine 5 MG TAB PO (09:07)
[2024-12-28] MEDS: Apixaban 5 MG TAB 10 MG PO (09:07)
[2024-12-28] MEDS: Normal Saline Flush 10 ML SYR IVP (09:09)
[2024-12-28] MEDS: cefTRIAXone 2 GM/50 ML BAG IVPB (10:30)
[2024-12-28 11:06] VITALS: BP 121/64; PULSE 82; RESP 17; TEMP 36.7; O2SAT 93
--- NOTE | 2024-12-28 12:41 | CMDISCH_ITS ---
Date of service: 12/28/24 Time of Service: 12:41 LACE Index Scoring Tool Questions: Length of Stay (in days): 1 Was the patient admitted via the E.D.?: Yes E.D. Visits: 1 Answers: Total Score: 5 Risk of Readmission: Low Risk Care Management Discharge Plan Reason for Hospitalization: Sepsis, CAP, PE Discharge Plan: Renea will be discharged home with no new services indicated. She will transport via private vehicle. The patient was discharged with a new prescription for Eliquis. CM contacted the pharmacy to verify the cost of the medication. After confirming the cost, CM attempted to inform the patient; however, the patient had already left prior to CM making contact. Per the pharmacy, they do not have Renea?s insurance information on file. CM informed the pharmacy that the patient does have active insurance coverage and requested that they ask the patient to present her insurance card upon arrival. Additionally, CM requested that the pharmacy offer the patient a 30-day free trial card for Eliquis, if available. Per pharmacy, Renea was able to purchase the medication at an out of pocket cost. CM attempted to contact the patient to inform her that the pharmacy is missing her insurance information and will attempt to reach her again. CM was able to contact Renea. Renea states she does not believe her insurance covers medications but will provide her insurance card to the rx regardless. CM contacted [facility] at [facility] [[email or web address]] and informed PCP of Renea's discharge. Patient/Family Education Needs: Review instructions, activity, limitation, and discharge plan of care. Discuss ask me three
--- NOTE | 2024-12-28 12:54 | NUR.NOTE ---
Nursing Note: Documentation by VIKRAM Marie student reviewed.
[2024-12-28 12:59] LABS: Glucose Negative (Negative)
[2024-12-28 13:07] LABS: C & S Indicated? No; WBC 0-2 HPF (0-5)
--- NOTE | 2024-12-28 16:23 | DSE_ITS ---
Date of service: 12/28/24 Time of Service: 10:00 DS: Diagnosis Discharge Diagnosis (1) Shortness of breath: Status: Acute (2) Pulmonary embolism: Status: Chronic (3) Community acquired pneumonia: Status: Acute Discharge Plan Disposition Patient Disposition: Home Condition: Improving Discharge Details Reason For Visit: Sepsis, CAP, PE Admit Date/Time: 12/27/24 11:14 Admit Provider: Dm Combs Attending Provider: Dm Combs Primary Care Provider: Cindy Royal Hospital Course Hospital Course: An 84-year-old female with a past medical history of hypertension presented with a two-day history of cough and sharp, pleuritic right-sided chest pain. The pain was constant and worsened with inspiration. She denied fever, chills, nausea, or vomiting. On evaluation in the emergency department, she was afebrile, mildly tachycardic, and hemodynamically stable. Laboratory studies revealed leukocytosis (WBC 18 K/uL) and a mild troponin elevation (62). ECG showed sinus tachycardia with LBBB. CTA of the chest demonstrated a right-sided pulmonary embolism and a right lower lobe infiltrate, consistent with community-acquired pneumonia. PESI score was 103, indicating intermediate risk. WBC 24 today; she did receive methylpred nisolone 125 mg IV in the ED yesterday. She was started on apixaban in the ED for anticoagulation and received IV ceftriaxone and azithromycin for pneumonia coverage. Bilateral lower extremity duplex ultrasound showed no evidence of deep vein thrombosis in either extremity. She remained hemodynamically stable throughout hospitalization, with no supplemental oxygen requirement. Troponin trended down, and there was no evidence of right heart strain. Blood cultures remained negative to date. Her symptoms improved with antibiotics, incentive spirometry, and pulmonary hygiene. She is now clinically stable for discharge. She is discharged with azithromycin and cefpodoxime for 3 days (continuation of 5 day course). Continue Apixaban 10 mg twice a day for 5 more days and then 5 mg twice a day until advised otherwise by PCP. Assessment and Plan (1) Shortness of breath ? Acute * Continue incentive spirometry and Acapella device at home. (2) Pulmonary embolism ? Chronic * Continue apixaban (Eliquis) 10 mg orally BID for 7 days, then transition to 5 mg orally twice a day thereafter. * Bilateral lower extremity ultrasound negative for DVT. * Monitor for any signs of bleeding (nosebleeds, blood in urine or stool, unusual bruising). * Maintain hydration and avoid prolonged immobility. * Follow up with PCP for long-term anticoagulation management. (3) Community-acquired pneumonia ? Acute * Transition to oral antibiotics for completion of course: * Azithromycin 500 mg PO daily for 3 days * Cefpodoxime 200 mg PO BID for 3 days * Encourage deep breathing, coughing, and use of incentive spirometer. * Monitor for worsening shortness of breath, chest pain, or fever. * Repeat chest imaging in 4?6 weeks or sooner if symptoms persist or worsen. Pertinent Labs and Imaging * WBC: 18.4 up to 24 todat * Troponin I: 59; 64; 57 - right heart strain * Creatinine: 1.0 mg/dL * CTA chest: Right-sided pulmonary embolism and right lower lobe infiltrate * Bilateral lower extremity ultrasound: Negative for DVT * Blood cultures: Pending/no growth to date Discharge Medications Medication Dose Route Frequency Duration Indication Apixaban 10 mg Oral twice a day 7 days, then 5 mg twice a da y Pulmonary embolism Azithromycin 500 mg Oral Daily 3 days Pneumonia Cefpodoxime 200 mg Oral twice a day 3 days Pneumonia Amlodipine 5 mg Oral Daily Continue home med Hypert ension Olmesartan 40 mg Oral Daily Continue home med Hyper tension Condition at Discharge * Vital signs: Stable * Oxygenation: SpO2 96% on room air * Ambulation: Independent * Diet: Regular * Follow-up: Advised Follow-Up Appointments * Primary Care Provider: within 3?5 days after discharge for anticoagulation management and review of apixaban therapy * Recommend repeat imaging in 4-6 weeks. Recommendations for Follow Up Recommended tests to be ordered by follow up provider: anticoagulation [facility] Home Meds and New Rx's Prescriptions: New azithromycin 250 mg Tablet 500 mg PO DAILY Qty: 6 0RF cefpodoxime 200 mg tablet 200 mg PO BID Qty: 7 0RF Rx Instructions: must administer with a meal/food Eliquis 5 mg Tablet See Rx Instructions .ROUTE .COMPLEX Qty: 74 0RF Rx Instructions: 10 mg orally twice a day for 6 days; then 5 mg twice a day Continued amlodipine 5 mg tablet 5 mg PO DAILY Patient Comments: TAKE ONE TABLET BY MOUTH EVERY DAY olmesartan 40 mg tablet 40 mg PO DAILY Patient Comments: TAKE ONE TABLET BY MOUTH EVERY DAY Discharge Instructions Additional Instructions: * Take all medications exactly as prescribed. * Do not stop apixaban without medical advice. * Use incentive spirometer and Acapella device several times daily to improve lung expansion. * Rest as needed but remain mobile?avoid prolonged bed rest. * Report immediately for: * New or worsening shortness of breath * Chest pain * Coughing up blood * Signs of bleeding (bloody or black stools, easy bruising, nosebleeds) * Fever >101?F or chills Return to the ED if experiencing chest pain, dizziness, or difficulty breathing. Stand Alone Forms: Nursing Discharge Form Referrals: Cindy Royal [Primary Care Provider, Medicine] Referral Note: Follow up in pt hospitalization for PE & PNA; home on azithro and cefpodoxime, started apixaban. Please call your PCP office to set up a follow up appointment. Activity:: Activity as Tolerated Equipment/Supplies:: No Equipment Needed Diet:: As Tolerated Discharge Orders Discharge Orders: Discharge Order (Routine); Ordered 12/28/24 Ordered By: Winsome Camargo Discharge Data Discharge Date/Time-TO BE ENTERED AT DEPARTURE: 12/28/24 13:53 DS: Summary Time Spent with Patient providing and/or coordinating discharge services: Greater than 30 minutes Status at Discharge Functional status at discharge: independent ambulation Overall status at discharge: patient is back to baseline Mental Status: mental status grossly normal Speech and Movement: speech and movement normal Mood: congruent mood Affect: normal affect Exam Narrative Exam Narrative: General: Alert, no acute distress HEENT: Normal exam, moist mucous membranes Neck: No JVD Respiratory: Normal effort; intermittent cough; lungs clear Cardiac: Regular rate; no murmurs noted GI: Abdomen soft, non-tender Neuro: Alert and oriented x3 Skin/Extremities: No rashes, no edema Psych: Mental status grossly normal Psych Mental Status: mental status grossly normal Speech and Movement: speech and movement normal Mood: congruent mood Affect: normal affect DS: Data Vitals/I&O Vitals and I&O: Vital Signs Temperature 36.7 C 12/28/24 11:06 Temperature Source Temporal Artery Scan 12/28/24 11:06 Pulse 82 12/28/24 11:06 Pulse Rhythm Regular 12/27/24 12:02 Pulse 102 H 12/27/24 11:40 Respiratory Rate 17 12/28/24 11:06 Respiratory Effort Normal, Non-Labored 12/27/24 12:02 Respiratory Depth Normal 12/27/24 12:02 Respiratory Pattern Normal 12/27/24 12:02 Blood Pressure 121/64 12/28/24 11:06 Blood Pressure Mean 83 12/28/24 11:06 Blood Pressure Position Sitting 12/27/24 07:47 Pulse Oximetry 93 12/28/24 11:06 Oxygen Delivery Method Room Air 12/28/24 11:06 Oxygen Flow Rate 0 12/28/24 11:06 Pain Level 0 12/28/24 11:06 Intake & Output 12/27/24 12/28/24 12/28/24 23:59 11:59 23:59 Intake Total 360 / 680 295 / 295 Output Total 400 / 400 200 / 200 Balance -40 / 280 295 / 95 -200 / 95 Intake: IV 55 / 55 Oral 360 / 360 240 / 240 Output: Urine 400 / 400 200 / 200 Other: Urine Color Yellow Yellow Yellow Urine Appearance Clear Clear Cloudy Urine Odor Normal Normal Normal Data Completed and Pending Labs on day of discharge: Labs from last 24 hours 12/28/24 12/28/24 12/27/24 12:34 05:25 19:20 WBC 24.45 H RBC 4.09 Hgb 11.6 Hct 35.2 L MCV 86 MCH 28.4 MCHC 33.0 RDW 13.9 Plt Count 223 MPV 11.1 H Sodium 139 Potassium 4.0 Chloride 103 Carbon Dioxide 25.5 Anion Gap 10.5 BUN 26 H Creatinine 0.9 Est GFR (CKD-EPI 2020) 63.43 Glucose 150 H Calcium 8.9 Magnesium 2.1 Troponin I 59 H* Urine Color Yellow Urine Clarity Sl Cloudy Urine pH 5.0 Ur Specific [place] 1.025 Urine Protein 30 H Urine Ketones Trace H Urine Blood Moderate H Urine Nitrite Negative Urine Bilirubin Negative Urine Urobilinogen 0.2 Ur Leukocyte Esterase Negative Urine RBC 3-5 H Urine WBC 0-2 Ur Epithelial Cells Few Urine Crystals Negative Urine Bacteria Many Urine Casts 5-10 Hyaline Urine Mucus Negative Ur Culture Indicated? No Urine Glucose Negative 12/27/24 16:00 WBC RBC Hgb Hct MCV MCH MCHC RDW Plt Count MPV Sodium Potassium Chloride Carbon Dioxide Anion Gap BUN Creatinine Est GFR (CKD-EPI 2020) Glucose Calcium Magnesium Troponin I 64 H* Urine Color Urine Clarity Urine pH Ur Specific [place] Urine Protein Urine Ketones Urine Blood Urine Nitrite Urine Bilirubin Urine Urobilinogen Ur Leukocyte Esterase Urine RBC Urine WBC Ur Epithelial Cells Urine Crystals Urine Bacteria Urine Casts Urine Mucus Ur Culture Indicated? Urine Glucose Preliminary micro results at discharge 12/27/24 10:33 Blood Blood Culture - Preliminary NO GROWTH 24 HOURS 12/27/24 10:24 Blood Blood Culture - Preliminary NO GROWTH 24 HOURS PFSH All Active Problems (Updated 12/27/24 @ 12:00 by Winsome Camargo NP) Community acquired pneumonia (Acute) Shortness of breath (Acute) Pulmonary embolism (Chronic) Social History Smoking/Tobacco Use Status: Unknown Smoking risk assessment performed?: Yes Drug use: Never Substance use type: does not use Housing: house Do you feel safe at home: Yes Do you feel safe in your relationship?: Yes Time Spent with Patient Time Spent with Patient: 45-69 minutes Time was spent: preparing to see the patient(eg.review tests), ordering medications,tests, procedures, referring, communicating with other health care p rofessionals, indepentently interpreting results, counseling the patient and care coordination
== END 2024-12-28 13:53 | disposition home or self-care (01) | DRG 175 ==
LOC: ER 11:33 → MS 11:59
PROVIDERS: Admitting Provider Family Medicine; Emergency Provider Emergency Medicine; PCP Family Medicine; Responsible Provider Nurse Practitioner Family; Visit Provider Family Medicine
DX: I26.99 Other pulmonary embolism without acute cor pulmonale (principal); J18.9 Pneumonia, unspecified organism; I10 Essential (primary) hypertension; Z79.899 Other long term (current) drug therapy; R06.02 Shortness of breath; R00.0 Tachycardia, unspecified
CPT/HCPCS: 00123; 36415; 71275; 80048; 80053; 85027; 87040; 87637; 93005; 96365; 96367; 96375; 99285; 81003; 81015; 83735; 84484; 85025; 85610; 85730; 93010; 93970; 99222; 99239; J0456; J0696; J2919; J3490

== ENCOUNTER → 2025-02-22 03:50 | Outpatient (CLI) | payer MEDICARE, OTHER, SELFPAY ==
--- NOTE | 2025-02-22 | DI.RAD_ITS ---
Exam(s) XR CHEST 2V PA LATERAL EXAM: XR CHEST 2V PA LATERAL CLINICAL HISTORY: F/U ACUTE PNEUMONIA, J18.9,ONGOING COUGH, RLL CRACKLES. TECHNIQUE: 2D digital imaging was performed. COMPARISON: CT CT CHEST PE CTA from 12/27/2024 FINDINGS: 2 views: Heart size is upper normal. The mediastinum is not widened. Lungs are clear. No infiltrates nor pleural effusions. There are healed fractures of the left 5th and 6th ribs posteriorly.. Indeed prior CT scan reveals healed fractures of the left 5th, 6, 7th, and 8th left ribs IMPRESSION: No acute pulmonary findings.Please note that recent CT scan of 12/27/2024 revealed acute pulmonary emboli in the right lower lobe vessels as well as right lower lobe infiltrate and unilateral small right pleural effusion. DATA REPOSITORY: RADIATION DOSE DELIVERED:
== END ==
LOC: DI 03:50
PROVIDERS: PCP Family Medicine; Visit Provider Family Medicine
DX: J18.9 Pneumonia, unspecified organism (principal)
CPT/HCPCS: 71046